=== PATIENT | female | born 1945 | race Caucasian/White ===

== ENCOUNTER → 2023-03-31 07:52 | Outpatient (REF) | payer MEDICARE, OTHER, SELFPAY | LOC: DHSLP 07:52 | PROVIDERS: ATTENDING PHYSICIAN Internal Medicine Critical Care Medicine; FAMILY PHYSICIAN Internal Medicine | DX: G47.00 Insomnia, unspecified (principal); R09.02 Hypoxemia | CPT/HCPCS: 95810 ==

== ENCOUNTER → 2023-04-25 16:23 | Outpatient (REF) | payer MEDICARE, OTHER, SELFPAY | LOC: RAD 16:23 | PROVIDERS: ATTENDING PHYSICIAN Internal Medicine Critical Care Medicine; FAMILY PHYSICIAN Internal Medicine | DX: R91.1 Solitary pulmonary nodule (principal) | CPT/HCPCS: 71250 ==

== ENCOUNTER → 2023-06-07 11:05 | Outpatient (REF) | payer MEDICARE, OTHER, SELFPAY | LOC: DHCBC HW 11:05 | PROVIDERS: ATTENDING PHYSICIAN Internal Medicine Cardiovascular Disease; FAMILY PHYSICIAN Internal Medicine | DX: I34.0 Nonrheumatic mitral (valve) insufficiency (principal) | CPT/HCPCS: 93306 ==

== ENCOUNTER 2023-07-26 10:45 | Outpatient (RCR) | payer MEDICARE, OTHER, SELFPAY | END 2023-07-26 23:59 | disposition home or self-care (01) | LOC: PURB 10:45 | PROVIDERS: ATTENDING PHYSICIAN Internal Medicine Critical Care Medicine; FAMILY PHYSICIAN Internal Medicine | DX: J98.4 Other disorders of lung (principal) | CPT/HCPCS: G0237; G0239 ==

== ENCOUNTER 2023-08-25 10:45 | Outpatient (RCR) | payer MEDICARE, OTHER, SELFPAY | END 2023-08-25 23:59 | disposition home or self-care (01) | LOC: PURB 10:45 | PROVIDERS: ATTENDING PHYSICIAN Internal Medicine Critical Care Medicine; FAMILY PHYSICIAN Internal Medicine | DX: J98.4 Other disorders of lung (principal); Z87.891 Personal history of nicotine dependence | CPT/HCPCS: G0239 ==

== ENCOUNTER → 2023-09-07 12:21 | Outpatient (REF) | payer MEDICARE, OTHER, SELFPAY | LOC: WDC 12:21 | PROVIDERS: ATTENDING PHYSICIAN Internal Medicine | DX: Z12.31 Encounter for screening mammogram for malignant neoplasm of breast (principal) | CPT/HCPCS: 77063; 77067 ==

== ENCOUNTER → 2023-09-09 11:28 | Outpatient (REF) | payer MEDICARE, OTHER, SELFPAY | LOC: RAD 11:28 | PROVIDERS: ATTENDING PHYSICIAN Internal Medicine | DX: Z78.0 Asymptomatic menopausal state (principal) | CPT/HCPCS: 77080 ==

== ENCOUNTER 2023-09-27 10:45 | Outpatient (RCR) | payer MEDICARE, OTHER, SELFPAY | END 2023-09-28 09:08 | disposition home or self-care (01) | LOC: PURB 10:45 | PROVIDERS: ATTENDING PHYSICIAN Internal Medicine Critical Care Medicine; FAMILY PHYSICIAN Internal Medicine | DX: J98.4 Other disorders of lung (principal); Z87.891 Personal history of nicotine dependence | CPT/HCPCS: G0239 ==

== ENCOUNTER → 2023-10-19 11:40 | Outpatient (REF) | payer MEDICARE, OTHER, SELFPAY | LOC: RAD 11:40 | PROVIDERS: ATTENDING PHYSICIAN Internal Medicine Critical Care Medicine; FAMILY PHYSICIAN Internal Medicine | DX: R91.1 Solitary pulmonary nodule (principal) | CPT/HCPCS: 71250 ==

== ENCOUNTER 2023-10-25 10:45 | Outpatient (RCR) | payer MEDICARE, OTHER, SELFPAY | END 2023-10-26 10:59 | disposition home or self-care (01) | LOC: PURB 10:45 | PROVIDERS: ATTENDING PHYSICIAN Internal Medicine Critical Care Medicine; FAMILY PHYSICIAN Internal Medicine | DX: J98.4 Other disorders of lung (principal); Z87.891 Personal history of nicotine dependence | CPT/HCPCS: G0239 ==

== ENCOUNTER → 2023-12-13 13:51 | Outpatient (REF) | payer MEDICARE, OTHER, SELFPAY ==
[2023-12-13 14:43] LABS: B.E. 10.8 mmol/L; HCO3 36.4 mmol/L (21-28); O2 Saturation % 92.3 % (94-98); PCO2 50 mmHg (32-35); PO2 60 mmHg (83-108); pH 7.47 (7.35-7.45)
== END ==
LOC: RSP 13:51
PROVIDERS: ATTENDING PHYSICIAN Internal Medicine Critical Care Medicine; FAMILY PHYSICIAN Internal Medicine
DX: J44.9 Chronic obstructive pulmonary disease, unspecified (principal)
CPT/HCPCS: 36600; 82805

== ENCOUNTER 2024-01-10 13:13 | Inpatient (IN) | payer MEDICARE, OTHER, SELFPAY ==
[2024-01-10] VITALS (9 sets, daily range): BP systolic 111–137; BP diastolic 69–90; BMI 19.5; BMI 20.1
--- NOTE | 2024-01-10 08:16 | ED.GENMED ---
History of Present Illness
General
Chief Complaint: Breathing Problem
Source: patient
Exam Limitations: none
Time Seen by Provider: 01/10/24 08:04
History of Present Illness
History of Present Illness:
See MDM
Past History
Past History
ED Past Medical History: Arrthythmia, CHF, COPD and HTN
ED Past Surgical History: Other
Social History
Tobacco: Former smoker
Alcohol: None
Drug: None
Personal: Single
Living: alone
Employment: Retired
Family History
Family History: Other
Phy Exam
Physical Exam
Physical Exam:
See MDM
Scores
Heart Failure Risk
Heart Failure Risk Score: Not Applicable
Course
Orders/Labs/Results
Orders:
Orders
01/10/24 08:05
EKG [Electrocardiogram (*1)] Urgent
Reason for Study: Shortness of Breath
EKG- Treatment ONCE
CXR2 [CR Chest - 2 Views ] Urgent
Comment:
Reason For Exam: sob
01/10/24 08:13
Ipratropium/Albuterol Sulfate [Duoneb] 3 ml INH R NOW STA
01/10/24 08:16
Basic Metabolic Panel Urgent
Complete Blood Count/With Diff Urgent
NT-proBNP Urgent
Troponin I Urgent
01/10/24 10:20
Dexamethasone Sod Phosphate [Decadron] 10 mg IV NOW STA
Abnormal Lab Results
01/10/24
08:16
WBC 12.0 H 10^3/uL
(4.8-10.8)
MCHC 31.9 L g/dL
(33.0-37.0)
Absolute Neuts (auto) 8.5 H 10^3/uL
(1.4-6.5)
Absolute Monos (auto) 1.4 H 10^3/uL
(0.1-0.6)
Lymphocytes % 13.9 L %
(20.5-51.1)
Monocytes % 11.9 H %
(1.7-9.3)
Chloride 94 L mmol/L
(98-107)
Carbon Dioxide 38 H mmol/L
(22-30)
BUN 28 H mg/dl
(7-17)
01/10/24 08:16
01/10/24 08:16
Vital Signs
Initial and Last Documented VS:
Initial Vital Signs
Temp Pulse Resp BP Pulse Ox
98.1 F 95 25 135/83 95
01/10/24 07:57 01/10/24 07:57 01/10/24 07:57 01/10/24 07:57 01/10/24 07:57
Last Documented Vital Signs
Temp Pulse Resp BP Pulse Ox
98.1 F 90 20 135/83 96
01/10/24 07:57 01/10/24 08:00 01/10/24 08:00 01/10/24 08:00 01/10/24 08:07
MDM/Problems Addressed
Differential Diagnosis Includes:
HPI and MDM Narrative:
78-year-old female presenting for evaluation of shortness of breath. Patient does have a history of COPD and is on 2 L nasal cannula chronically. She noted that she has been more short of breath over the past few days. She has been placing her
pulse oximeter on at home and noticing it intermittently drops. She was told to seek medical attention if this were ever to happen. On arrival, patient is extremely well-appearing nontoxic. She does have poor air exchange. Will give DuoNeb.
Will obtain chest x-ray and basic blood work. Patient does have a history of A-fib and states compliance with Eliquis. Because of this, doubt PE
Physical exam
General: frail but sitting in bed comfortably and in no acute distress
HEENT: protecting airway
Neck: appears supple
CV: No evidence of cyanosis. Irregular rhythm
Resp: No accessory muscle use. Poor air exchange. No significant wheezing noted
Abd: Non-distended
Extremities: No deformities. No leg edema or tenderness
Neuro: alert
Psych: Normal affect
Skin: Intact
Problems Addressed including Acute and Chronic Conditions affecting care:
1. Shortness of breath
Acuity: acute
Prognosis: stable
Details: Likely in the setting of her known COPD. Will give DuoNeb. Will obtain chest x-ray and obtain troponin given symptoms
Updates
Chest x-ray clear. Patient still to symptomatic when she is walking to the bathroom. Will start IV steroids and admit
Differential Diagnosis (but not limited to): COPD exacerbation, viral syndrome, pneumonia, ACS
Testing considered: CT PE but she states compliance with Eliquis
Drug therapy (if applicable): OTC meds, please see d/c instruction regarding Rx drugs
Amount and/or Complexity of Data Reviewed
Clinical info obtained from: Patient
External data reviewed: N/A
Labs I independently reviewed (but not limited to): Mild leukocytosis
Radiology: X-ray independently reviewed: Chest x-ray without pulmonary edema or pneumothorax or pneumonia
Pulse Ox: hypoxic on room air
EKG independently reviewed: A flutter, normal axis, no STEMI
Claim Adjuster: A-fib
Critical Care: N/A
Risk of Complication:
Social Determinants of health: Good social support
Discussed with other providers: Hospitalist
Escalation of Care includes Admit/Obs: Given the mild hypoxia and exertional dyspnea, will admit for COPD exacerbation
Occasional wrong word or 'sound a like' substitutions may have occurred due to the inherent limitations of voice recognition software. Read the chart carefully and recognize, using context, where substitutions have occurred.
*Critical Care Note
Total Time (30-74mins, 75-104mins- exclusive of procedures): Not Applicable
ED Attending Note
-
Portions of this chart may have been created with voice recognition software.� Occasional wrong word or��sound alike� substitutions may have occurred due to the inherent limitations of voice recognition software.
Discharge Plan
Departure
Patient Disposition: Admit
Date of Disposition: 01/10/24
Time of Disposition: 10:24
Admit to: Med/Surg
Presentation/result/management discussed w/ accepting MD/DO: Hospitalist
Discharge Problem:
Acute exacerbation of chronic obstructive pulmonary disease
Prescriptions:
No Action
diltiazem HCl 180 MG capsule,extended release 24hr
180 mg PO HS
metoprolol succinate 50 MG tablet extended release 24 hr
50 mg PO DAILY Qty: 30 0RF
vitamin B complex Tablet
1 tab PO DAILY Qty: 0 0RF
furosemide 20 MG tablet
20 mg PO Q48H Qty: 30 0RF
cholecalciferol (vitamin D3) [Vitamin D3] 25 mcg (1,000 unit) Capsule
25 mcg PO DAILY Qty: 0 0RF
Eliquis 5 MG tablet
5 mg PO BID Qty: 180 3RF
psyllium Packet
1 packet PO DAILY
docusate sodium [Colace] 100 mg Capsule
100 mg PO DAILYPRN PRN (Reason: constipation)
Prolia 60 mg/mL Syringe
60 mg SC [id number]
Patient Comments:
01/23/2023, patient states that her next dose is at the 'end of January'.
acetaminophen [Tylenol] 325 mg Tablet
325 mg PO DAILYPRN PRN (Reason: mild pain)
famotidine [Pepcid] 20 mg Tablet
20 mg PO DAILY PRN (Reason: gerd)
calcium carbonate 500 mg calcium (1,250 mg) Tablet
500 mg PO HS
hyoscyamine sulfate 0.125 mg Tablet
0.125 mg PO Q8HPRN PRN (Reason: IBS)
albuterol sulfate [Ventolin HFA] 90 mcg/actuation Hfa Aerosol Inhaler
1 - 2 puff INHALATION R TID
ipratropium bromide 42 mcg (0.06 %) Morven,Non-Aerosol
2 spray INTRANASAL BIDPRN PRN (Reason: runny nose)
Align 4 mg Capsule
4 mg PO NOON
cranberry 500 mg capsule
500 mg PO HS
calcium-vitamin D3-vitamin K 500-100-40 mg-unit-mcg Tablet,Chewable
1 tab PO HS
azithromycin 250 mg Tablet
500 mg PO Q24H Qty: 4 0RF
guaifenesin 600 mg Tablet Extended Release 12hr
600 mg PO Q12 Qty: 8 0RF
Saccharomyces boulardii 250 mg Capsule
250 mg PO DAILY Qty: 7 0RF
cefdinir 300 mg capsule
300 mg PO BID Qty: 8 0RF
Referrals:
Jana Coffey MD [Family Provider] -
Interventions
Interventions:
*Risk Screen - Suicide Last Done: 01/10/24 07:57
*General Assessment Last Done: 01/10/24 08:07
*Neglect/Abuse Screening Last Done: 01/10/24 07:57
ED- Fall Risk Assessment Last Done: 01/10/24 08:07
*ED COVID-19 Vaccine History Last Done: 01/10/24 07:57
ED- Cardiac Assessment Last Done: 01/10/24 08:07
ED- Pulmonary Assessment Last Done: 01/10/24 08:07
Discharge Date and Time
Print Language: AZERI
[2024-01-10] MEDS: DUONEB 3 ML INH ×3 (08:21→19:13)
[2024-01-10 08:31] LABS: % Eosinophils 1.8 % (0-6); % Immature Granulocytes 0.3 % (0-0.5); % Lymphocytes 13.9 % (20.5-51.1); % Monocytes 11.9 % (1.7-9.3); % Neutrophils 71.1 % (42.2-75.2); Absolute Basophils 0.1 10^3/uL (0-0.2); Absolute Eosinophils 0.2 10^3/uL (0-0.7); Absolute Lymphocytes 1.7 10^3/uL (1.2-3.4); Absolute Monocytes 1.4 10^3/uL (0.1-0.6); Absolute Neutrophils 8.5 10^3/uL (1.4-6.5); Hematocrit 45.8 % (37.0-47.0); Hemoglobin 14.6 g/dL (12.0-16.0); Mean Corp Hgb Conc. 31.9 g/dL (33.0-37.0); Mean Corpuscular Hgb 30.7 pg (27.0-31.0); Mean Corpuscular Volume 96.2 fL (81.0-99.0); Nucleated Red Blood Cells % 0 %; Platelet Count 393 10^3/uL (130-400); Red Blood Cell Count 4.76 10^6/uL (4.20-5.40); Red Cell Dist. Width 13.2 % (11.5-14.5)
[2024-01-10 08:46] LABS: Blood Urea Nitrogen 28 mg/dl (7-17); Calcium 9.3 mg/dl (8.4-10.2); Carbon Dioxide 38 mmol/L (22-30); Chloride 94 mmol/L (98-107); Estimated Creatinine Clearance 54 ml/min; Glucose 94 mg/dl (70-99); Sodium 140 mmol/L (135-145); eGFR > 60.00
[2024-01-10 08:56] LABS: Troponin I < 0.012 ng/ml
[2024-01-10 09:13] LABS: NT-proBNP 816 pg/ml
[2024-01-10] MEDS: DECADRON 10 MG IV (10:28)
--- NOTE | 2024-01-10 11:53 | HPS.HSE ---
Addendum entered and electronically signed by Catalina David MD 01/10/24 13:55:
I personally performed a history and physical exam of the patient and discussed management with the resident. I reviewed the resident's note and agree with the documented findings and plan of care HPI/CC.
COPD exacerbation
Treated with IV steroid Decadron 4 IV every 12 hours,
DuoNebs [id number] and as needed,
azithromycin 500 mg daily x 3 days.
Check Procal to rule out bacterial pneumonia,
COVID and flu are negative
PT OT eval
Original Note:
Family Physician
-
Family Physician: Jana Coffey
Chief Complaint
-
Shortness of breath
History of Present Illness
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
Patient stated that this has been going on for a few days, she sometimes walks without oxygen and realized that her oxygen level dropped to 88% and sometimes low 90s. While in the ED, patient was on 2 L O2 NC saturating at 89%, which was increased
to 3 L now saturating at 94%. She also reports anorexia, and 2lb weight loss in 2 weeks. She denies wheezing, leg swelling, chest pain, abdominal pain, trouble swallowing, headaches, fever, chills, nausea and vomiting.
Medical History
Past Medical History
Past Medical History: Reports Arrhythmia (Persistent A-fib), CHF, COPD, HTN, Hypercholesterolemia and Other (Hyperparathyroidism, osteoporosis, chronic nocturnal hypoxia IBS, severe scoliosis with mild kyphosis)
Past Surgical History: Reports Orthopedic (Left shoulder-adhesive capsulitis) and Tonsilectomy
Additional Past Surgical History:
Cataract extraction, unsuccessful cardioversion, colposcopy with LEEP procedure
Social History
Tobacco: Former Smoker (1/2-1 PPD for 30 years)
Alcohol: None
Drug: None
Personal: Single
Living: Alone
Family History
Family History: Not pertinent
Allergies / Home Medications
Allergies reflects when Allergies were last updated in [facility].
Home Medications with original date entered in [facility]
Allergy/Medication List:
Allergies
Allergy/AdvReac Type Severity Reaction Status Date / Time
No Known Allergies Allergy Verified 03/30/22 06:36
Home Medications
diltiazem HCl 180 mg capsule,extended release 24 hr 180 mg PO HS Blood pressure 05/24/21
apixaban 5 mg tablet (Eliquis) 5 mg PO BID atiral fibrillation #180 tabs 12/02/21
furosemide 20 mg tablet 20 mg PO Q48H Heart Failure #30 tabs 12/02/21
metoprolol succinate 50 mg tablet,extended release 24 hr 50 mg PO DAILY Heart Failure #30 tabs 12/02/21
denosumab 60 mg/mL subcutaneous syringe (Prolia) 60 mg SC [id number] Osteoporosis 03/24/22
docusate sodium 100 mg capsule (Colace) 100 mg PO DAILYPRN PRN constipation 03/24/22
albuterol sulfate 90 mcg/actuation aerosol inhaler (Ventolin HFA) 2 puff inhalation R TIDPRN PRN sob 01/23/23
calcium carbonate 500 mg PO HS Supplement 01/23/23
cranberry 500 mg capsule 500 mg PO HS Supplement 01/23/23
ipratropium bromide 42 mcg (0.06 %) nasal spray 2 spray intranasal BIDPRN PRN runny nose 01/23/23
Saccharomyces boulardii 250 mg capsule 250 mg PO DAILY #7 caps 01/27/23
ascorbic acid (vitamin C) 500 mg tablet (Vitamin C) 500 mg PO DAILY 01/10/24
cholecalciferol (vitamin D3) 25 mcg (1,000 unit) capsule (Vitamin D3) 50 mcg PO DAILY Supplement 01/10/24
dapagliflozin propanediol 10 mg tablet (Farxiga) 10 mg PO DAILY 01/10/24
fluticasone fur. 100 mcg-umeclid 62.5 mcg-vilant 25 mcg inhalat.powder (Trelegy Ellipta) 1 inh inhalation R DAILY 01/10/24
psyllium 1 packet PO DAILY 01/10/24
vitamin B complex 1 tab PO DAILY 01/10/24
Review of Systems
-
History Source: Patient
Constitutional: Reports Weight Loss
EENT: Reports No Symptoms
Respiratory: Reports Trouble Breathing
Cardiac: Reports No Symptoms
Abdomen/GI: Reports No Symptoms
: Reports No Symptoms
Skin: Reports No Symptoms
Physical Exam
Vital Signs
Vital Signs
Temp Pulse Resp BP Pulse Ox
98.1 F 90 20 135/83 96
01/10/24 07:57 01/10/24 08:00 01/10/24 08:00 01/10/24 08:00 01/10/24 08:07
Physical Exam
General: Well Developed, Well Nourished, No Apparent Distress and Conversant
HEENT: NormoCephalic, Moist mucous membranes and Atraumatic
Respiratory: Rhonchi (Left lung base) and Non Labored Respirations; No Wheezes
Cardiac: S1/S2, Regular Rhythm and Irregular Rhythm; No Murmur or Rub
GI: Soft, Non Tender, Non Distended and Normal Bowel Sounds; No Organomegaly
Rectal: Deferred by Provider
Musculoskeletal: No Clubbing, No Cyanosis and No Edema
Skin: Warm; No Rash
Neuro: Awake, AO x 3 and Nonfocal/grossly intact
Psych: Calm
Laboratory Results
-
01/10/24 08:16
01/10/24 08:16
Laboratory Results
Total Bilirubin Cancelled 01/10/24 08:16
AST Cancelled 01/10/24 08:16
ALT Cancelled 01/10/24 08:16
Alkaline Phosphatase Cancelled 01/10/24 08:16
Troponin I < 0.012 ng/ml 01/10/24 08:16
Data Reviewed
-
Diagnostic Radiology: Image Personally Visualized and interpreted, Report Reviewed by me and Discussed with Physician
Lab Data: Labs Reviewed by me and Discussed with Physician
Old Records: Reviewed
Impression/Plan
-
IMPRESSION: 78-year-old female with PMH of COPD, restrictive lung disease, severe scoliosis, A-fib on Eliquis presenting with few days of VÁZQUEZ/SOB. On chronic 2 L O2 NC. Was saturating at 89% on 2 L O2 NC in the ED s/p Decadron administration.
Improved to 94% on 3 L.
Assessment/plan:
#Acute on chronic hypoxemia hypercapnic respiratory failure
-Admit to MedSurg.
-Currently on 3 L O2 NC (baseline 2 L O2 NC FUR BLENDER).
-Suspect COPD exacerbation vs advanced pulmonary disease.
-CXR with diffuse increased interstitial prominence, no effusion.
-Check procalcitonin, and COVID, flu.
-DuoNebs 4 times daily, as needed.
-Decadron 4 mg twice daily�will likely transition to 40 mg prednisolone to complete 5 days in a.m if responding.
-Consider CT chest if symptoms worsen.
-Mucinex 1200 mg twice daily.
-PT/OT.
#Restrictive lung disease
-Severe dextroconvex thoracic scoliosis�likely contributing to the above.
#Persistent A-fib.
-Rate controlled on metoprolol.
-Continue Eliquis.
-Monitor on telemetry.
#Chronic HFpEF
-Continue 20 mg furosemide every 48 hours
#Essential hypertension
-Continue diltiazem and metoprolol.
#Osteoporosis
-Continue Prolia.
DVT PPx�Eliquis
CODE STATUS�full code
[2024-01-10 12:16] LABS: COVID-19 Antigen Negative (Negative)
[2024-01-10 15:22] LABS: Procalcitonin < 0.05 ng/ml (0.0-0.25)
[2024-01-10] MEDS: ZITHROMAX 500 MG PO (15:45)
[2024-01-10 16:45] LABS: Procalcitonin < 0.05 ng/ml (0.0-0.25)
[2024-01-10] MEDS: SYMBICORT 80/4.5 MCG INHALER 2 PUFF INH (19:18)
[2024-01-10] MEDS: VENTOLIN NEBULES INH (19:38)
[2024-01-10] MEDS: OSCAL CAL 500 500 MG PO (21:25)
[2024-01-10] MEDS: CARDIZEM CD 180 MG PO (21:25)
[2024-01-10] MEDS: ELIQUIS 5 MG PO (21:25)
[2024-01-10] MEDS: MUCINEX 1200 MG PO (21:26)
[2024-01-10] MEDS: FARXIGA 10 MG PO (21:40)
[2024-01-10 21:45] LABS: Glucose - Point of Care 158 mg/dl (70-99)
[2024-01-10] MEDS: DECADRON 4 MG IV (21:59)
[2024-01-11 03:20] VITALS: BP 108/67
[2024-01-11 06:00] VITALS: BMI 20.3
[2024-01-11 06:40] LABS: % Basophils 0.1 % (0-2); % Immature Granulocytes 0.5 % (0-0.5); % Lymphocytes 10.1 % (20.5-51.1); % Neutrophils 85.3 % (42.2-75.2); Absolute Lymphocytes 0.8 10^3/uL (1.2-3.4); Absolute Monocytes 0.3 10^3/uL (0.1-0.6); Absolute Neutrophils 7.1 10^3/uL (1.4-6.5); Hematocrit 45.3 % (37.0-47.0); Hemoglobin 14.4 g/dL (12.0-16.0); Mean Corp Hgb Conc. 31.8 g/dL (33.0-37.0); Mean Corpuscular Hgb 31.4 pg (27.0-31.0); Mean Corpuscular Volume 98.9 fL (81.0-99.0); Mean Platelet Volume 9.9 fL (7.4-10.4); Nucleated Red Blood Cells % 0 %; Platelet Count 384 10^3/uL (130-400); Red Blood Cell Count 4.58 10^6/uL (4.20-5.40); Red Cell Dist. Width 13.2 % (11.5-14.5); White Blood Cell Count 8.3 10^3/uL (4.8-10.8)
[2024-01-11 06:48] LABS: INR 1.19; PT 15.4 Sec (11.4-14.6)
[2024-01-11 06:49] LABS: APTT 35.1 Sec (23.4-35.0)
[2024-01-11 07:06] LABS: Blood Urea Nitrogen 27 mg/dl (7-17); Calcium 9.3 mg/dl (8.4-10.2); Carbon Dioxide 37 mmol/L (22-30); Chloride 97 mmol/L (98-107); Estimated Creatinine Clearance 52 ml/min; Glucose 126 mg/dl (70-99); Potassium 5.2 mmol/L (3.5-5.1); Sodium 140 mmol/L (135-145); eGFR > 60.00
[2024-01-11 07:10] VITALS: BP 118/73
[2024-01-11] MEDS: VENTOLIN NEBULES 2.5 MG INH ×2 (07:23→11:24)
[2024-01-11] MEDS: SYMBICORT 80/4.5 MCG INHALER 2 PUFF INH (07:23)
[2024-01-11] MEDS: SPIRIVA RESPIMAT 2.5 MCG 2 PUFF INH (07:23)
[2024-01-11] MEDS: B COMPLEX w/VITAMIN C 1 CAPLET PO (07:43)
[2024-01-11] MEDS: ZITHROMAX 500 MG PO (07:43)
[2024-01-11] MEDS: METAMUCIL, KONSYL 1 PACKET PO (07:43)
[2024-01-11] MEDS: MUCINEX 1200 MG PO (07:43)
[2024-01-11] MEDS: FLORASTOR 250 MG PO (07:43)
[2024-01-11] MEDS: ELIQUIS 5 MG PO (07:43)
[2024-01-11] MEDS: VITAMIN C 500 MG PO (07:44)
[2024-01-11] MEDS: VITAMIN D3 (cholecalciferol) 50 MCG PO (07:44)
[2024-01-11] MEDS: LASIX 20 MG PO (07:47)
[2024-01-11] MEDS: TOPROL XL 50 MG PO (07:47)
[2024-01-11 07:49] LABS: Glucose - Point of Care 135 mg/dl (70-99)
--- NOTE | 2024-01-11 07:58 | W.PN.HOSP.TC ---
Addendum entered and electronically signed by Catalina David MD 01/11/24 11:17:
I saw and evaluated the patient. I reviewed the resident�s note and agree with findings and plan as documented in the resident�s note.
Respiratory status back to baseline, on 2 L nasal cannula oxygen support.
Chest auscultation without wheezing.
Continue short course steroid prednisone 40 mg x 4 more days (total 5 days).
Can continue azithromycin total 3 days as well.
Original Note:
Today's Communication/Plan
-
Steroid taper
Recheck potassium outpatient
D/c planning
Assessment / Plan
Assessment / Plan
IMPRESSION: 78-year-old female with PMH of COPD, restrictive lung disease, severe scoliosis, A-fib on Eliquis presenting with few days of VÁZQUEZ/SOB. On chronic 2 L O2 NC. Was saturating at 89% on 2 L O2 NC in the ED s/p Decadron administration.
Improved to 94% on 3 L.
Assessment/plan:
#Acute on chronic hypoxemia hypercapnic respiratory failure secondary to COPD exacerbation.
#Respiratory acidosis secondary to above
-Back to baseline 2 L O2 NC, tolerated OT.
-CXR with diffuse increased interstitial prominence, no effusion.
-Procalcitonin, COVID, flu negative.
-Transition to 40 mg pred for extra 4 days.
-Mucinex 1200 mg twice daily.
-PT/OT.
#Restrictive lung disease
-Severe dextroconvex thoracic scoliosis�likely contributing to the above.
#Hyperkalemia
-Most likely due to dehydration with prerenal azotemia.
-Recheck outpatient, will give a script.
#Persistent A-fib.
-Rate controlled on metoprolol.
-Continue Eliquis.
-Monitor on telemetry.
#Chronic HFpEF
-Continue 20 mg furosemide every 48 hours
#Essential hypertension
-Continue diltiazem and metoprolol.
#Osteoporosis
-Continue Prolia.
DVT PPx�Eliquis
CODE STATUS�full code
Anticipated Discharge: Today
Subjective/Interval History
-
Date of Service: January 11, 2024
Have seen and examined patient today. When I saw her, she was just finishing OT, on her baseline 2L O2 NC saturating at 92-94%. I discussed that her serum potassium level is a little bit high and she will need to recheck it in 2 days and also give
her a prescription for it. She stated that she has appointment her primary care in about 10 days and a prescription for CBC and CMP. She continues to deny chest pain, palpitations, fever or chills, abdominal pain or any urinary symptoms.
Objective Data
-
Labs:
Laboratory Results
01/11/24
06:16
WBC 8.3
Hgb 14.4
Hct 45.3
Plt Count 384
PT 15.4 H
INR 1.19
APTT 35.1 H
Sodium 140
Potassium 5.2 H
Chloride 97 L
Carbon Dioxide 37 H
BUN 27 H
Creatinine 0.7
Glucose 126 H
Calcium 9.3
Vital Signs:
Vital Signs
Temp Pulse Resp BP Pulse Ox
98.0 F 93 16 118/73 97
01/11/24 03:20 01/11/24 07:47 01/11/24 07:27 01/11/24 07:47 01/11/24 07:27
Review of Systems
-
History Source: Patient
All other systems: Not reviewed unless documented
Constitutional: Reports No Symptoms; Denies Night Sweats or Chills
EENT: Reports No Symptoms Reported
Respiratory: Denies Cough, Trouble Breathing or Wheezing
Cardiac: Reports No Symptoms; Denies Chest Pain or Palpitations
Abdomen/GI: Reports No Symptoms
Genitourinary: Reports No Symptoms
Musculoskeletal: Reports No Symptoms
Skin: Reports No Symptoms
Physical Exam
-
General: Well Developed, Well Nourished and No Apparent Distress
HEENT: Normocephalic, Atraumatic, Moist Mucous Membranes and PERRLA
Respiratory: Clear to Auscultation
Cardiac: Regular Rhythm and S1/S2; Negative Murmur, Rub or JVD
GI: Soft, Nontender, Nondistended and Normal Bowel Sounds
Musculoskeletal: No Clubbing, No Cyanosis and No Edema
Skin: Warm and Dry
Neuro: Awake, Alert, Oriented, No Motor Deficits and Nonfocal/Grossly Intact
Psych: Calm and Intact Judgement/Insight
Data Reviewed
-
Diagnostic Radiology: Image personally visualized and interpreted, Report Reviewed by me and Discussed with Physician
Labs: Labs Reviewed by me and Discussed with Physician
Old Records: Reviewed
[2024-01-11 09:09] VITALS: BP 112/73; PULSE 87; O2SAT 94
[2024-01-11] MEDS: DECADRON 4 MG IV (10:24)
[2024-01-11 11:05] VITALS: BP 116/71
[2024-01-11 12:02] LABS: Glucose - Point of Care 99 mg/dl (70-99)
[2024-01-11 12:37] VITALS: BP 116/71; PULSE 87; O2SAT 98
--- NOTE | 2024-01-11 13:55 | CM ---
Reviewed chart, met with patient to obtain information for assessment. Patient stated that she lives alone in a single two story home with no steps to enter. She described herself as independent with her ADLs, personal care, dressing and bathing.
She drives and can transport herself to her appointments and do her own shopping. Patient stated that she is active and exercises. She denied any DME besides o2.
She has never had VN services.
Patient has not been to a SNF in the past.
Patient has a prescription plan and uses, [facility] in [place] for all of her medications.
Her PCP is, Dr. Jana Coffey.
Patient was agreeable to VN services for PT only. Referral made to VN.
IMM signed and on chart.
Plan: Case management will continue to follow and assist with discharge planning. Home with VN through when stable for discharge.
--- NOTE | 2024-01-11 14:00 | W.DCSUMMARY ---
Discharge Summary
Discharge Data
Date of Admission: 01/10/24
Date of Discharge: 01/11/24
-
Pending Results: No
Hospital Course
Discharging Physician : Catalina David MD ; Raymundo Diez MD
Disposition : Home
Primary care physician : Jana Coffey MD
Principal Discharge diagnosis : Acute on chronic hypoxemic hypercapnic respiratory failure, COPD exacerbation, restrictive lung disease, hyperkalemia, persistent A-fib, chronic HFpEF, essential hypertension, osteoporosis
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
VÁZQUEZ/SOB. Patient stated that this has been going on for a few days, she sometimes walks without oxygen and realized that her oxygen level dropped to 88% and sometimes low 90s.
While in the ED, patient was saturating at 89% on 2 L O2 NC which improved to 92�94% on 3 L O2 NC. Her procalcitonin level, COVID-19 and flu serologies were negative.
While in the hospital, patient was treated with IV Decadron 4 mg every 12 hours, DuoNebs [id number] and as needed, and was started on azithromycin 500 mg daily. Her symptoms improved overnight and she was able to tolerate occasional therapy
without significant shortness of breath.
Condition on discharge: Awake, alert and oriented x3, answer question properly, able to make own decision and take care of activities of daily living, speech clear and comprehensive, continent of the bowel and bladder, ambulate without corporate administrative assistant.
She is back at her home O2 level of 2 L nasal cannula oxygen support, and has been transitioned to 40 mg oral prednisone for total of 5 days. Patient has been instructed to take azithromycin 500 mg daily for the next 2 days (total of 3 days), and
follow-up with his primary care physician in less than 1 week. Due to hyperkalemia of 5.2, patient was also given a prescription for BMP and was instructed to get lab done in not more than 2 days, and follow-up with her primary care physician with
results immediately if higher.
Important imaging findings :
Lungs are hyperinflated with flattening of the diaphragm as seen previously. There is diffuse increased interstitial prominence. Small airspace opacity posterior costophrenic sulcus on the lateral projection likely related to atelectasis. No other
airspace consolidation identified. Some artifact over the right lower lung related to overlying soft tissues. No effusion. No pneumothorax. Cardiomegaly is unchanged. Mediastinal silhouette and pulmonary vasculature within normal limits. Severe
dextroconvex thoracic scoliosis as seen previously.
IMPRESSION: Unchanged findings consistent with chronic obstructive pulmonary disease. No superimposed acute process identified radiographically.
Discharge Plan
-
Patient Disposition: Home with Home Care
Discharge Diagnosis/Procedures: Acute on chronic hypoxemic hypercapnic respiratory failure, COPD exacerbation, restrictive lung disease, hyperkalemia, persistent A-fib, chronic HFpEF, essential hypertension, osteoporosis
Condition: Fair
Diet: Low Sodium
Activity: As tolerated
Driving Restrictions: As prior to admission
Bathing Restrictions: None
Other Services: VN
Referrals:
Jana Coffey MD [Family Provider] - in less than 1 week
Additional Discharge Medication Instructions: Take azithromycin 500 mg by mouth daily for the next 2 days.
Take Mucinex every 12 hours by mouth for the next 3 days.
Take prednisone 40 mg by mouth daily for the next 4 days.
Prescriptions:
New
azithromycin 250 mg Tablet
500 mg PO DAILY 2 Days Qty: 4 0RF
guaifenesin 600 mg Tablet Extended Release 12hr
1,200 mg PO Q12 3 Days Qty: 12 0RF
prednisone 20 mg tablet
40 mg PO DAILY 4 Days Qty: 8 0RF
Continued
diltiazem HCl 180 MG capsule,extended release 24hr
180 mg PO HS
metoprolol succinate 50 MG tablet extended release 24 hr
50 mg PO DAILY Qty: 30 0RF
furosemide 20 MG tablet
20 mg PO Q48H Qty: 30 0RF
Eliquis 5 MG tablet
5 mg PO BID Qty: 180 3RF
docusate sodium [Colace] 100 mg Capsule
100 mg PO DAILYPRN PRN (Reason: constipation)
Prolia 60 mg/mL Syringe
60 mg SC [id number]
Patient Comments:
calcium carbonate 500 mg calcium (1,250 mg) Tablet
500 mg PO HS
albuterol sulfate [Ventolin HFA] 90 mcg/actuation Hfa Aerosol Inhaler
2 puff INHALATION R TIDPRN PRN (Reason: sob)
ipratropium bromide 42 mcg (0.06 %) Hodgen,Non-Aerosol
2 spray INTRANASAL BIDPRN PRN (Reason: runny nose)
cranberry 500 mg capsule
500 mg PO HS
Saccharomyces boulardii 250 mg Capsule
250 mg PO DAILY Qty: 7 0RF
psyllium Packet
1 packet PO DAILY
ascorbic acid (vitamin C) [Vitamin C] 500 mg Tablet
500 mg PO DAILY
vitamin B complex Tablet
1 tab PO DAILY
dapagliflozin propanediol [Farxiga] 10 mg Tablet
10 mg PO DAILY
Trelegy Ellipta 100-62.5-25 mcg Blister With Device
1 inh INHALATION R DAILY
cholecalciferol (vitamin D3) [Vitamin D3] 25 mcg (1,000 unit) capsule
50 mcg PO DAILY
Discharge Orders:
Discharge Patient (As Directed); Ordered 01/11/24
Ordered By: Raymundo Diez
Discharge Date and Time
Discharge Date/Time: 01/11/24 14:22
Print Language: EQUATORIAL GUINEAN
--- NOTE | 2024-01-11 14:51 | VNURNOTE ---
Home Health Liaison met with patient to discuss VN nurse/therapy, visits, schedule and homebound status. Patient stated that she is not homebound and has no intentions on being homebound. Patient was asking about out patient PT and was advised to
follow up with PCP. She stated she has a PCP appt next week. Patient stated she did not want to wait a week for out patient to start. PCP notified. Patient was in the process of walking to wheel chair for discharge. Brochure provided.
== END 2024-01-11 14:22 | disposition home health service (06) | DRG 190 ==
LOC: 3 WEST ACU 13:13
PROVIDERS: Student in an Organized Health Care Education/Training Program; ADMITTING PHYSICIAN Internal Medicine; EMERGENCY PHYSICIAN Student in an Organized Health Care Education/Training Program; FAMILY PHYSICIAN Internal Medicine
DX: J44.1 Chronic obstructive pulmonary disease with (acute) exacerbation (principal); J96.21 Acute and chronic respiratory failure with hypoxia; J96.22 Acute and chronic respiratory failure with hypercapnia; I48.19 Other persistent atrial fibrillation; E87.29 Other acidosis; I50.32 Chronic diastolic (congestive) heart failure; J98.4 Other disorders of lung; M41.9 Scoliosis, unspecified; E87.5 Hyperkalemia; I11.0 Hypertensive heart disease with heart failure; M81.0 Age-related osteoporosis without current pathological fracture; Z11.52 Encounter for screening for COVID-19; Z59.89 Other problems related to housing and economic circumstances
CPT/HCPCS: 71046; 80048; 82962; 83880; 84145; 84484; 85025; 85610; 85730; 87502; 87811; 90662; 93005; 94640; 96374; 97162; 97166; 99285; G0008

== ENCOUNTER → 2024-09-07 11:57 | Outpatient (REF) | payer MEDICARE, OTHER, SELFPAY | LOC: WDC 11:57 | PROVIDERS: ATTENDING PHYSICIAN Obstetrics & Gynecology Gynecology; FAMILY PHYSICIAN Internal Medicine | DX: Z12.31 Encounter for screening mammogram for malignant neoplasm of breast (principal) | CPT/HCPCS: 77063; 77067 ==

== ENCOUNTER → 2024-10-19 12:16 | Outpatient (REF) | payer MEDICARE, OTHER, SELFPAY | LOC: RAD 12:16 | PROVIDERS: ATTENDING PHYSICIAN Internal Medicine Critical Care Medicine; FAMILY PHYSICIAN Internal Medicine | DX: R91.1 Solitary pulmonary nodule (principal) | CPT/HCPCS: 71250 ==

== ENCOUNTER → 2025-02-12 12:52 | Outpatient (REF) | payer MEDICARE, OTHER, SELFPAY | LOC: RAD 12:52 | PROVIDERS: ATTENDING PHYSICIAN Internal Medicine | DX: R06.09 Other forms of dyspnea (principal) | CPT/HCPCS: 71046 ==

== ENCOUNTER → 2025-02-19 13:39 | Outpatient (REF) | payer MEDICARE, OTHER, SELFPAY | LOC: RAD 13:39 | PROVIDERS: ATTENDING PHYSICIAN Internal Medicine Endocrinology, Diabetes & Metabolism; FAMILY PHYSICIAN Internal Medicine | DX: E04.2 Nontoxic multinodular goiter (principal) | CPT/HCPCS: 76536 ==